=== PATIENT | male | born 1935 | race Caucasian/White ===

== ENCOUNTER 2017-10-31 07:43 | Inpatient (IN) | payer MEDICARE, OTHER ==
[2017-10-31 08:42] LABS: ADD MAN DIFF? NO
[2017-10-31 08:47] LABS: WHITE BLOOD COUNT 11.1 10^3/ul (4.8-10.8)
[2017-10-31 08:47] LABS: BASOPHIL # 0.1 10^3/ul (0.0-0.1); BASOPHILS % 0.5 % (0.0-2.0); EOSINOPHILS # 0.2 10^3/ul (0.0-0.5); EOSINOPHILS % 2.2 % (0.0-7.0); HEMATOCRIT 37.9 % (42.0-52.0); HEMOGLOBIN 12.9 g/dl (14.0-18.0); LYMPHOCYTES # 2.6 10^3/ul (0.8-2.9); LYMPHOCYTES % 23.1 % (15.0-51.0); MEAN CORPUSCULAR VOLUME 88.1 fl (82.0-101.0); MEAN PLATELET VOLUME 10.5 fl (7.4-10.4); MONOCYTE # 1.3 10^3/ul (0.3-0.9); MONOCYTES % 11.6 % (0.0-11.0); NEUTROPHIL # 6.9 10^3/ul (1.6-7.5); NEUTROPHILS % 62.1 % (39.0-77.0); PLATELET COUNT 304 10^3/UL (140-415); RED CELL DISTRIBUTION WIDTH 13.7 % (11.5-14.5)
[2017-10-31] MEDS: ALBUTEROL 0.083% (NEB) 2.5 MG/3 ML AMP NEB (08:51)
[2017-10-31 09:03] LABS: ANION GAP 13 (8-16); BLOOD UREA NITROGEN 12 mg/dl (7-20); CALCIUM 9.5 mg/dl (8.4-10.2); CARBON DIOXIDE 26 mmol/L (21-31); CHLORIDE 105 mmol/L (97-110); CREATININE 0.61 mg/dl (0.61-1.24); GLUCOSE 141 mg/dl (70-220); POTASSIUM 4.1 mmol/L (3.5-5.1); SODIUM 140 mmol/L (135-144)
[2017-10-31 09:15] LABS: B-TYPE NATRIURETIC PEPTIDE 252 PG/ML (0-450)
[2017-10-31 09:22] LABS: TROPONIN-I < 0.012 ng/ml (0.00-0.12)
[2017-10-31] MEDS: CEFTRIAXONE 1 GM/50 ML (PMX) 50 ML IVPB (09:30)
[2017-10-31] MEDS ORDERED: ACETAMINOPHEN 325 MG TAB PO ×2 (10:30→11:00)
[2017-10-31] MEDS ORDERED: ONDANSETRON 4 MG INJ IV ×2 (10:30→11:00)
[2017-10-31] MEDS ORDERED: BISACODYL 10 MG SUPP PR (11:00)
[2017-10-31] MEDS ORDERED: ACETAMINOPHEN 650 MG SUPP PR (11:00)
[2017-10-31] MEDS ORDERED: NACL 0.9% 3 ML SYG IV (11:00)
[2017-10-31] MEDS ORDERED: MAGNESIUM HYDROXIDE 30ML CUP PO (11:00)
[2017-10-31] MEDS ORDERED: DOCUSATE SODIUM 100 MG CAP PO (11:00)
[2017-10-31] MEDS ORDERED: HYDROCODONE/APAP (5/325) TAB PO ×2 (11:00)
[2017-10-31] MEDS ORDERED: morphine 2 MG INJ IV (11:00)
[2017-10-31] MEDS: AZITHROMYCIN 500MG/NS (PMX) 250 ML IV (11:15)
[2017-10-31] MEDS: PENTOXIFYLLINE (SR) 400 MG TAB PO ×2 (12:29→20:06)
[2017-10-31] MEDS: [UNRECOGNIZED DRUG - REMARK] XX (13:41)
[2017-10-31] MEDS: ALBUTEROL 0.083% (NEB) 2.5 MG/3 ML AMP HHN (19:28)
[2017-10-31] MEDS: GUAIFENESIN/DM 5ML CUP PO (20:04)
[2017-10-31] MEDS: TIMOLOL 0.5% 5 ML OPH BOTH EYES (20:04)
[2017-10-31] MEDS: CYCLOSPORINE 0.05% OPH DROPERETTE BOTH EYES (20:05)
[2017-10-31] MEDS: BRIMONIDINE 0.1% 5 ML OPH BOTH EYES (20:05)
[2017-10-31] MEDS: TAMSULOSIN (SR) 0.4 MG CAP PO (20:06)
[2017-10-31] MEDS: GABAPENTIN 300 MG CAP PO (20:06)
[2017-10-31] MEDS: ATORVASTATIN 80 MG TAB PO (20:06)
[2017-10-31] MEDS ORDERED: NON-FORMULARY/PATIENT OWN MED (Silodosin (Rapaflo) 8 MG) PO (21:00)
[2017-10-31] MEDS: CARBOXYMETHYLCELLULOSE 0.5% 0.1 ML OPH BOTH EYES (21:04)
[2017-11-01] MEDS: ALBUTEROL 0.083% (NEB) 2.5 MG/3 ML AMP HHN ×4 (01:07→19:30)
[2017-11-01] MEDS: PANTOPRAZOLE 40 MG INJ IV (05:32)
[2017-11-01 05:53] LABS: ADD MAN DIFF? NO
[2017-11-01 05:56] LABS: BASOPHILS % 0.4 % (0.0-2.0); EOSINOPHILS # 0.2 10^3/ul (0.0-0.5); EOSINOPHILS % 2.3 % (0.0-7.0); HEMATOCRIT 33.9 % (42.0-52.0); HEMOGLOBIN 11.6 g/dl (14.0-18.0); LYMPHOCYTES # 2.4 10^3/ul (0.8-2.9); LYMPHOCYTES % 25.9 % (15.0-51.0); MEAN CORPUSCULAR HEMOGLOBIN 30.1 pg (29.0-33.0); MEAN CORPUSCULAR HGB CONC 34.2 g/dl (32.0-37.0); MEAN CORPUSCULAR VOLUME 88.1 fl (82.0-101.0); MEAN PLATELET VOLUME 10.4 fl (7.4-10.4); MONOCYTE # 1.1 10^3/ul (0.3-0.9); MONOCYTES % 11.3 % (0.0-11.0); NEUTROPHIL # 5.6 10^3/ul (1.6-7.5); NEUTROPHILS % 59.7 % (39.0-77.0); PLATELET COUNT 257 10^3/UL (140-415); RED BLOOD COUNT 3.85 10^6/ul (4.70-6.10); RED CELL DISTRIBUTION WIDTH 13.8 % (11.5-14.5); RETICULOCYTE COUNT # 0.056 X10^6 (0.020-0.110); RETICULOCYTE COUNT % 1.5 % (0.5-1.5); RETICULOCYTE RBC 3.85
[2017-11-01 05:56] LABS: WHITE BLOOD COUNT 9.4 10^3/ul (4.8-10.8)
[2017-11-01 06:18] LABS: ALANINE AMINOTRANSFERASE 48 IU/L (13-69); ALBUMIN 2.9 g/dl (3.3-4.9); ALBUMIN/GLOBULIN RATIO 0.93; ALKALINE PHOSPHATASE 418 IU/L (42-121); ANION GAP 10 (8-16); ASPARTATE AMINO TRANSFERASE 54 IU/L (15-46); BILIRUBIN,INDIRECT 0.7 mg/dl (0-1.1); BILIRUBIN,TOTAL 0.7 mg/dl (0.2-1.3); BLOOD UREA NITROGEN 12 mg/dl (7-20); CALCIUM 8.6 mg/dl (8.4-10.2); CARBON DIOXIDE 26 mmol/L (21-31); CHLORIDE 107 mmol/L (97-110); CHOL/HDL RATIO 3.9 RATIO; CHOLESTEROL 98 mg/dl (100-200); CREATININE 0.56 mg/dl (0.61-1.24); GLUCOSE 140 mg/dl (70-220); HDL CHOLESTEROL 25 mg/dl (31-75); LDL CHOLESTEROL,CALCULATED 50 mg/dl; MAGNESIUM 1.9 mg/dl (1.7-2.5); POTASSIUM 4.2 mmol/L (3.5-5.1); SODIUM 139 mmol/L (135-144); TRIGLYCERIDES 113 mg/dl (0-149)
[2017-11-01 06:31] LABS: T3 UPTAKE 38.8 % (23.5-40.5); T4 (THYROXINE) 9.8 ug/dl (5.5-11.0)
[2017-11-01 06:37] LABS: HEMOGLOBIN A1C 6.2 % (0-5.9)
[2017-11-01 06:45] LABS: THYROID STIMULATING HORMONE 0.672 MIU/L (0.465-4.680)
[2017-11-01 07:22] LABS: FOLATE 8.1 ng/ml (2.8-20.0)
[2017-11-01] MEDS ORDERED: CEFTRIAXONE 2 GM INJ IVPB (09:00)
[2017-11-01 09:15] LABS: ERYTHROCYTE SEDIMENTATION RATE 33 mm/Hr (0-20)
[2017-11-01] MEDS: AZITHROMYCIN 500MG/NS (PMX) 250 ML IVPB (09:22)
[2017-11-01] MEDS: FINASTERIDE 5 MG TAB PO (09:24)
[2017-11-01] MEDS: VERAPAMIL (SR) 180 MG TAB PO (09:24)
[2017-11-01] MEDS: FISH OIL 1,000 MG CAP PO (09:25)
[2017-11-01] MEDS: PENTOXIFYLLINE (SR) 400 MG TAB PO ×3 (09:25→20:19)
[2017-11-01] MEDS: ASPIRIN (EC) 81 MG TAB PO (09:25)
[2017-11-01] MEDS: CALCIUM CARBONATE 1.25 GM TAB PO (09:25)
[2017-11-01] MEDS: GUAIFENESIN/DM 5ML CUP PO (09:26)
[2017-11-01] MEDS: CYCLOSPORINE 0.05% OPH DROPERETTE BOTH EYES ×2 (09:26→21:30)
[2017-11-01] MEDS: CARBOXYMETHYLCELLULOSE 0.5% 0.1 ML OPH BOTH EYES ×2 (09:26→20:24)
[2017-11-01] MEDS: TIMOLOL 0.5% 5 ML OPH BOTH EYES ×2 (09:27→20:21)
[2017-11-01] MEDS: BRIMONIDINE 0.1% 5 ML OPH BOTH EYES ×2 (09:27→20:21)
[2017-11-01] MEDS: CEFTRIAXONE 2 GM/NS 50 ML IVPB (12:56)
[2017-11-01] MEDS: ATORVASTATIN 80 MG TAB PO (20:19)
[2017-11-01] MEDS: TAMSULOSIN (SR) 0.4 MG CAP PO (20:20)
[2017-11-01] MEDS: GABAPENTIN 300 MG CAP PO (20:20)
[2017-11-01 23:58] LABS: OCCULT BLOOD STOOL NEGATIVE (NEGATIVE)
[2017-11-02] MEDS: ALBUTEROL 0.083% (NEB) 2.5 MG/3 ML AMP HHN ×4 (01:33→20:39)
[2017-11-02] MEDS: PANTOPRAZOLE 40 MG INJ IV (05:30)
[2017-11-02 05:49] LABS: ADD MAN DIFF? NO
[2017-11-02 05:53] LABS: BASOPHIL # 0.1 10^3/ul (0.0-0.1); BASOPHILS % 0.6 % (0.0-2.0); EOSINOPHILS # 0.2 10^3/ul (0.0-0.5); EOSINOPHILS % 2.4 % (0.0-7.0); HEMATOCRIT 32.5 % (42.0-52.0); LYMPHOCYTES # 2.5 10^3/ul (0.8-2.9); LYMPHOCYTES % 27.6 % (15.0-51.0); MEAN CORPUSCULAR HEMOGLOBIN 29.7 pg (29.0-33.0); MEAN CORPUSCULAR HGB CONC 33.8 g/dl (32.0-37.0); MEAN CORPUSCULAR VOLUME 87.8 fl (82.0-101.0); MEAN PLATELET VOLUME 10.3 fl (7.4-10.4); MONOCYTES % 11.6 % (0.0-11.0); NEUTROPHIL # 5.2 10^3/ul (1.6-7.5); NEUTROPHILS % 57.4 % (39.0-77.0); PLATELET COUNT 252 10^3/UL (140-415); RED CELL DISTRIBUTION WIDTH 14.1 % (11.5-14.5)
[2017-11-02 06:37] LABS: ANION GAP 12 (8-16); BLOOD UREA NITROGEN 10 mg/dl (7-20); CALCIUM 8.7 mg/dl (8.4-10.2); CARBON DIOXIDE 24 mmol/L (21-31); CHLORIDE 107 mmol/L (97-110); CREATININE 0.59 mg/dl (0.61-1.24); GLUCOSE 125 mg/dl (70-220); POTASSIUM 4.1 mmol/L (3.5-5.1); SODIUM 139 mmol/L (135-144)
[2017-11-02] MEDS: CALCIUM CARBONATE 1.25 GM TAB PO (08:56)
[2017-11-02] MEDS: VERAPAMIL (SR) 180 MG TAB PO (08:56)
[2017-11-02] MEDS: FINASTERIDE 5 MG TAB PO (08:56)
[2017-11-02] MEDS: ASPIRIN (EC) 81 MG TAB PO (08:56)
[2017-11-02] MEDS: TIMOLOL 0.5% 5 ML OPH BOTH EYES ×2 (08:56→20:40)
[2017-11-02] MEDS: PENTOXIFYLLINE (SR) 400 MG TAB PO ×3 (08:56→20:37)
[2017-11-02] MEDS: FISH OIL 1,000 MG CAP PO (08:56)
[2017-11-02] MEDS: BRIMONIDINE 0.1% 5 ML OPH BOTH EYES ×2 (08:57→20:39)
[2017-11-02] MEDS: CARBOXYMETHYLCELLULOSE 0.5% 0.1 ML OPH BOTH EYES ×2 (08:57→20:59)
[2017-11-02] MEDS: CYCLOSPORINE 0.05% OPH DROPERETTE BOTH EYES ×2 (08:57→21:00)
[2017-11-02] MEDS: AZITHROMYCIN 500MG/NS (PMX) 250 ML IVPB (09:38)
[2017-11-02] MEDS: CEFTRIAXONE 2 GM/NS 50 ML IVPB (11:22)
[2017-11-02] MEDS: ATORVASTATIN 80 MG TAB PO (20:37)
[2017-11-02] MEDS: GABAPENTIN 300 MG CAP PO (20:37)
[2017-11-02] MEDS: TAMSULOSIN (SR) 0.4 MG CAP PO (20:38)
[2017-11-03] MEDS: ALBUTEROL 0.083% (NEB) 2.5 MG/3 ML AMP HHN ×4 (02:27→20:12)
[2017-11-03] MEDS: PANTOPRAZOLE 40 MG INJ IV (05:08)
[2017-11-03 06:32] LABS: ADD MAN DIFF? NO
[2017-11-03 06:41] LABS: BASOPHIL # 0.1 10^3/ul (0.0-0.1); BASOPHILS % 0.5 % (0.0-2.0); EOSINOPHILS # 0.3 10^3/ul (0.0-0.5); EOSINOPHILS % 2.9 % (0.0-7.0); HEMATOCRIT 34.8 % (42.0-52.0); HEMOGLOBIN 11.6 g/dl (14.0-18.0); LYMPHOCYTES # 2.7 10^3/ul (0.8-2.9); LYMPHOCYTES % 27.2 % (15.0-51.0); MEAN CORPUSCULAR HEMOGLOBIN 29.7 pg (29.0-33.0); MEAN CORPUSCULAR HGB CONC 33.3 g/dl (32.0-37.0); MEAN PLATELET VOLUME 10.4 fl (7.4-10.4); MONOCYTE # 1.2 10^3/ul (0.3-0.9); NEUTROPHIL # 5.6 10^3/ul (1.6-7.5); NEUTROPHILS % 57.1 % (39.0-77.0); PLATELET COUNT 261 10^3/UL (140-415); RED BLOOD COUNT 3.91 10^6/ul (4.70-6.10); RED CELL DISTRIBUTION WIDTH 13.8 % (11.5-14.5)
[2017-11-03 06:41] LABS: WHITE BLOOD COUNT 9.8 10^3/ul (4.8-10.8)
[2017-11-03 07:03] LABS: ANION GAP 12 (8-16); BLOOD UREA NITROGEN 10 mg/dl (7-20); CALCIUM 8.7 mg/dl (8.4-10.2); CARBON DIOXIDE 25 mmol/L (21-31); CHLORIDE 105 mmol/L (97-110); CREATININE 0.59 mg/dl (0.61-1.24); GLUCOSE 124 mg/dl (70-220); POTASSIUM 4.1 mmol/L (3.5-5.1); SODIUM 138 mmol/L (135-144)
[2017-11-03] MEDS: CYCLOSPORINE 0.05% OPH DROPERETTE BOTH EYES ×2 (09:11→20:29)
[2017-11-03] MEDS: TIMOLOL 0.5% 5 ML OPH BOTH EYES ×2 (09:11→20:29)
[2017-11-03] MEDS: BRIMONIDINE 0.1% 5 ML OPH BOTH EYES ×2 (09:11→20:29)
[2017-11-03] MEDS: CARBOXYMETHYLCELLULOSE 0.5% 0.1 ML OPH BOTH EYES ×3 (09:11→22:44)
[2017-11-03] MEDS: AZITHROMYCIN 250 MG TAB PO (09:14)
[2017-11-03] MEDS: ASPIRIN (EC) 81 MG TAB PO (09:14)
[2017-11-03] MEDS: FINASTERIDE 5 MG TAB PO (09:14)
[2017-11-03] MEDS: PENTOXIFYLLINE (SR) 400 MG TAB PO ×3 (09:14→20:28)
[2017-11-03] MEDS: CALCIUM CARBONATE 1.25 GM TAB PO (09:15)
[2017-11-03] MEDS: VERAPAMIL (SR) 180 MG TAB PO (09:16)
[2017-11-03] MEDS: FISH OIL 1,000 MG CAP PO (11:07)
[2017-11-03] MEDS: CEFTRIAXONE 2 GM/NS 50 ML IVPB (11:07)
[2017-11-03] MEDS: ATORVASTATIN 80 MG TAB PO (20:28)
[2017-11-03] MEDS: TAMSULOSIN (SR) 0.4 MG CAP PO (20:28)
[2017-11-03] MEDS: GABAPENTIN 300 MG CAP PO (20:28)
[2017-11-04] MEDS: ALBUTEROL 0.083% (NEB) 2.5 MG/3 ML AMP HHN ×3 (02:41→14:06)
[2017-11-04] MEDS: PANTOPRAZOLE 40 MG INJ IV (05:31)
[2017-11-04 06:30] LABS: WHITE BLOOD COUNT 9.8 10^3/ul (4.8-10.8)
[2017-11-04 06:30] LABS: ADD MAN DIFF? NO; BASOPHIL # 0.1 10^3/ul (0.0-0.1); BASOPHILS % 0.5 % (0.0-2.0); EOSINOPHILS # 0.3 10^3/ul (0.0-0.5); EOSINOPHILS % 2.7 % (0.0-7.0); HEMATOCRIT 32.7 % (42.0-52.0); LYMPHOCYTES # 2.9 10^3/ul (0.8-2.9); LYMPHOCYTES % 29.1 % (15.0-51.0); MEAN CORPUSCULAR HEMOGLOBIN 29.7 pg (29.0-33.0); MEAN CORPUSCULAR HGB CONC 33.6 g/dl (32.0-37.0); MEAN CORPUSCULAR VOLUME 88.4 fl (82.0-101.0); MEAN PLATELET VOLUME 10.5 fl (7.4-10.4); MONOCYTE # 1.1 10^3/ul (0.3-0.9); MONOCYTES % 11.4 % (0.0-11.0); NEUTROPHIL # 5.5 10^3/ul (1.6-7.5); NEUTROPHILS % 56.1 % (39.0-77.0); PLATELET COUNT 281 10^3/UL (140-415); RED CELL DISTRIBUTION WIDTH 14.1 % (11.5-14.5)
[2017-11-04 06:57] LABS: ANION GAP 12 (8-16); BLOOD UREA NITROGEN 11 mg/dl (7-20); CALCIUM 8.7 mg/dl (8.4-10.2); CARBON DIOXIDE 25 mmol/L (21-31); CHLORIDE 106 mmol/L (97-110); CREATININE 0.58 mg/dl (0.61-1.24); GLUCOSE 123 mg/dl (70-220); POTASSIUM 4.1 mmol/L (3.5-5.1); SODIUM 139 mmol/L (135-144)
[2017-11-04] MEDS: ASPIRIN (EC) 81 MG TAB PO (08:19)
[2017-11-04] MEDS: FINASTERIDE 5 MG TAB PO (08:19)
[2017-11-04] MEDS: FISH OIL 1,000 MG CAP PO (08:19)
[2017-11-04] MEDS: CALCIUM CARBONATE 1.25 GM TAB PO (08:19)
[2017-11-04] MEDS: VERAPAMIL (SR) 180 MG TAB PO (08:20)
[2017-11-04] MEDS: PENTOXIFYLLINE (SR) 400 MG TAB PO ×2 (08:20→13:58)
[2017-11-04] MEDS: AZITHROMYCIN 250 MG TAB PO (08:20)
[2017-11-04] MEDS: CARBOXYMETHYLCELLULOSE 0.5% 0.1 ML OPH BOTH EYES (08:21)
[2017-11-04] MEDS: TIMOLOL 0.5% 5 ML OPH BOTH EYES (08:21)
[2017-11-04] MEDS: BRIMONIDINE 0.1% 5 ML OPH BOTH EYES (08:21)
[2017-11-04] MEDS: CYCLOSPORINE 0.05% OPH DROPERETTE BOTH EYES (11:38)
[2017-11-04] MEDS: CEFTRIAXONE 2 GM/NS 50 ML IVPB (11:39)
== END 2017-11-04 15:05 | disposition home or self-care (01) | DRG 195 ==
LOC: E/R 07:43 → MS3 10:29 → MS2 21:50
DX: J18.9 Pneumonia, unspecified organism (principal); I10 Essential (primary) hypertension; H35.30 Unspecified macular degeneration; E78.5 Hyperlipidemia, unspecified; N40.0 Benign prostatic hyperplasia without lower urinary tract symptoms; D64.9 Anemia, unspecified; J20.9 Acute bronchitis, unspecified; I73.9 Peripheral vascular disease, unspecified; M19.90 Unspecified osteoarthritis, unspecified site
CPT/HCPCS: 71045; 80048; 80053; 80061; 82270; 82306; 82607; 82746; 83036; 83735; 83880; 84100; 84436; 84443; 84479; 84484; 84560; 85025; 85045; 85651; 87040; 87070; 87081; 87400; 94640; 94664; 96374; 96375; 99285-25